=== PATIENT | male | born 1995 | race Caucasian/White ===

== ENCOUNTER 2020-09-25 02:15 | Emergency (ER) | payer BC, OTHER ==
[2020-09-25] MEDS ORDERED: Sodium Chloride 0.9% 10 ML Syringe FLUSH PRN (02:33)
[2020-09-25] MEDS ORDERED: GI Cocktail Oral Solution 30 ML PO ONE (02:33)
[2020-09-25] MEDS ORDERED: Lactated Ringers 1,000 ML IV ONE ×2 (02:36→03:49)
--- NOTE | 2020-09-25 02:43 | EDM.PDOC ---
ED HPI GENERAL MEDICAL PROBLEM - General Chief Complaint: Chest Pain Stated Complaint: Left chest pain Time Seen by Provider: 09/25/20 02:25 Source of Information: Reports: Patient History Limitations: Reports: Intoxication - History of Present Illness INITIAL COMMENTS - FREE TEXT/NARRATIVE: Patient comes emergency department today with complaints of left anterior chest pain. This patient received his Covid vaccine today. He has been drinking at the bar most of the evening and had 12+ drinks. He has been complaining of left anterior chest pain for most of the evening. He knows its been going on for multiple hours. The imaging scheduler was concerned about him at the end of the bar closing time so he gave the patient a ride to the emergency department with complaints of his left anterior chest pain. This patient over the past couple of weeks has been struggling with muscle spasms in his back and is also has some spasms in the anterior bilateral chest. His pain comes and goes on its own sharp shooting stabbing over the left anterior majority of the chest. He has had no recent falls or trauma. He has no shortness of breath difficulty breathing cough or congestion. No fever no chills. No weakness dizziness lightheadedness. No syncope. He is able to reproduce the pain with movement. He also complains of some epigastric discomfort after drinking quite heavily at the bar tonight. No nausea no vomiting. No diaphoresis. No abdominal pain. No hematuria dysuria or urinary frequency. No black or tarry stools. No Covid exposure no Covid symptoms. left chest Pain Score (Numeric/FACES): 7 - Related Data Allergies Allergy/AdvReac Type Severity Reaction Status Date / Time No Known Allergies Allergy Verified 09/25/20 02:25 Home Meds: Home Meds Cyclobenzaprine [Flexeril] 10 mg PO TID PRN #12 tab 09/25/20 [Rx] ED ROS GENERAL - Review of Systems Review Of Systems: Comprehensive ROS is negative, except as noted in HPI. ED EXAM, GENERAL - Physical Exam Exam: See Below Free Text/Narrative:: This patient is alert appropriate cooperative interactive smells highly of alcoholic beverages. Exam Limited By: Intoxication General Appearance: Alert, WD/WN, No Apparent Distress Eye Exam: Bilateral Eye: EOMI Ears: Normal External Exam, Normal TMs Nose: Normal Inspection Throat/Mouth: Normal Inspection Head: Atraumatic, Normocephalic Neck: Normal Inspection, Supple, Non-Tender, Full Range of Motion. No: Carotid Bruit Respiratory/Chest: No Respiratory Distress, Lungs Clear, Normal Breath Sounds, No Accessory Muscle Use, Other (He does have some generalized tenderness over the left anterior chest with palpation. There is no bruising swelling ecchymosis bony deformities or signs of trauma to the chest.) Cardiovascular: Normal Peripheral Pulses, Regular Rate, Rhythm, Tachycardia Peripheral Pulses: 2+: Radial (L), Radial (R), Posterior Tibial (L), Posterior Tibial (R), Dorsalis Pedis (L), Dorsalis Pedis (R) GI/Abdominal: Normal Bowel Sounds, Soft, Tender (Patient has some mild tender ness in the epigastric region. Negative Carroll sign. Rest of the abdomen is soft nontender nondistended without guarding or rebound.) (Male) Exam: Deferred Rectal (Males) Exam: Deferred Back Exam: Normal Inspection, Full Range of Motion. No: CVA Tenderness (L), CVA Tenderness (R), Muscle Spasm, Paraspinal Tenderness, Vertebral Tenderness Extremities: Normal Inspection, Normal Range of Motion, Non-Tender, No Pedal Edema, Normal Capillary Refill Neurological: Alert, Oriented, Normal Cognition, No Motor/Sensory Deficits Psychiatric: Normal Affect, Normal Mood Skin Exam: Warm, Dry, Intact, Normal Color, No Rash #1 Interpretation EKG Date: 09/25/20 Time: 02:20 Rhythm: NSR Rate (Beats/Min): 123 Shepherd: Normal P-Wave: Present QRS: Normal ST-T: Normal QT: Normal Comparison: NA - No Prior EKG Course - Vital Signs Last Recorded V/S: Last Vital Signs Temp 98 F 09/25/20 03:10 Pulse 105 H 09/25/20 04:10 Resp 20 09/25/20 04:10 BP 142/88 H 09/25/20 04:10 Pulse Ox 95 09/25/20 04:10 - Orders/Labs/Meds Orders: Active Orders 24 hr Category Date Time Status Peripheral IV Insertion Adult [OM.PC] Stat Oth 09/25/20 02:34 Ordered Labs: Laboratory Tests 09/25/20 09/25/20 Range/Units 02:50 02:50 WBC 9.7 (4.0-10.0) x10^3/uL RBC 5.32 (4.5-6.0) x10^6/uL Hgb 17.1 (14.0-18.0) g/dL Hct 45.2 (40.0-52.0) % MCV 85.0 (78.0-93.0) fL MCH 32.1 H (26.0-32.0) pg MCHC 37.8 H (32.0-36.0) g/dL RDW Coeff of Ignacia 12.9 (10.0-15.0) % Plt Count 376 (130-400) x10^3/uL Neut % (Auto) 61.8 (50.0-80.0) % Lymph % (Auto) 27.4 (25.0-50.0) % [place] % (Auto) 9.3 (2.0-11.0) % Eos % (Auto) 1.2 (0.0-4.0) % Baso % (Auto) 0.3 (0.2-1.2) % Sodium 139 (136-145) mmol/L Potassium 3.4 L (3.5-5.1) mmol/L Chloride 103 (98-107) mmol/L Carbon Dioxide 24 (21-32) mmol/L Anion Gap 15.4 H (5-15) mmol/L BUN 10 (7-18) mg/dL Creatinine 0.8 (0.70-1.30) mg/dL Est Cr Clr Drug Dosing 148.28 mL/min Estimated GFR (MDRD) > 60 Glucose 105 (74-106) mg/dL Calcium 8.7 (8.5-10.1) mg/dL Corrected Calcium 8.86 (8.5-10.1) mg/dL Total Bilirubin 0.4 (0.2-1.0) mg/dL AST 41 H (15-37) U/L ALT 105 H (16-63) U/L Alkaline Phosphatase 73 (46-116) U/L Troponin I High Sens 9 (<=76) ng/L Total Protein 7.6 (6.4-8.2) g/dL Albumin 3.8 (3.4-5.0) g/dL Globulin 3.8 Albumin/Globulin Ratio 1.00 Lipase 127 (73-393) U/L TSH, Ultra Sensitive 1.235 (0.358-3.74) uIU/mL Ethyl Alcohol 76 H (0-3) mg/dL Meds: Medications Discontinued Medications Generic Name Dose Route Start Last Admin Trade Name Kobe PRN Reason Stop Dose Admin Al Hydroxide/Mg Hydroxide 30 ml 09/25/20 02:33 09/25/20 02:41 Gi Cocktail Oral Solution 30 Ml PO 09/25/20 02:34 30 ml ONETIME ONE Administration Lactated Ringer's 1,000 mls @ 999 mls/hr 09/25/20 02:36 09/25/20 02:50 Ringers, Lactated IV 09/25/20 03:36 999 mls/hr ONETIME ONE Administration Lactated Ringer's 1,000 mls @ 999 mls/hr 09/25/20 03:49 09/25/20 03:50 Ringers, Lactated IV 09/25/20 04:49 999 mls/hr ONETIME ONE Administration Ketorolac Tromethamine 30 mg 09/25/20 03:37 09/25/20 03:40 Ketorolac 30 Mg/Ml Sdv IVPUSH 09/25/20 03:38 30 mg ONETIME ONE Administration Orphenadrine Citrate 60 mg 09/25/20 04:16 09/25/20 04:20 Orphenadrine 60 Mg/2 Ml Inj IV 09/25/20 04:17 60 mg ONETIME ONE Administration Sodium Chloride 10 ml 09/25/20 02:33 Sodium Chloride 0.9% 10 Ml Syringe FLUSH ASDIRECTED PRN Keep Vein Open - Re-Assessments/Exams Free Text/Narrative Re-Assessment/Exam: 09/25/20 EKG reviewed extemporaneously by myself shows no ST elevation or depression. No T wave inversion. Sinus tachycardia. Patient was given IV of LR 1 L wide open. Labs are drawn. GI cocktail with resolution of his epigastric pain as well as about a 50% improvement of his left anterior chest pain. His heart rate did slowly improved after the first liter of fluids but he was still somewhat tachycardic and did not have the urge to urinate so a second liter of LR was given. Laboratory evaluation is rather unremarkable other than a slightly elevated hemoglobin at 17.1. CMP shows a potassium of 3.4 and anion gap of 15.4 normal creatinine and BUN at 0.8, 10. Mild elevation of his AST at 41 ALT 105 most likely due to acute versus chronic alcohol ingestion. Normal T bili. Troponin high-sensitivity is 9. His alcohol is 76. After the second liter of fluid the patient's tachycardia has resolved and he has urinated. He was also given ketorolac 30 mg IV push and Norflex 60 mg IV push with complete resolution of his left anterior chest pain. His epigastric pain does not return. His troponin is negative as well of his EKG and I really am sure that this is not a cardiac event this is most likely alcoholic gastritis causing his epigastric pain as well as some chest pain from his gastritis versus musculoskeletal type chest pain. He does feel quite a bit better after the above therapy. We will discharge him home to rest at home tonight. 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 Anything new or worse he is to recheck. He is comfortable with this plan and his questions are answered. Departure - Departure Time of Disposition: 04:20 Disposition: Home, Self-Care 01 Clinical Impression: Non-cardiac chest pain, Musculoskeletal chest pain Acute alcohol intoxication Qualifiers: Complication of substance-induced condition: uncomplicated Qualified Code(s): F10.920 - Alcohol use, unspecified with intoxication, uncomplicated Alcoholic gastritis Qualifiers: Chronicity: acute Gastritis bleeding: presence of bleeding unspecified Qualified Code(s): K29.20 - Alcoholic gastritis without bleeding Prescriptions: Cyclobenzaprine [Flexeril] 10 mg PO TID PRN #12 tab PRN Reason: Pain Instructions: Chest Wall Pain, [id number], Nonspecific Chest Pain, Adult, [id number] Referrals: PCP,Unobtain [Primary Care Provider] - Forms: ED Department Discharge Additional Instructions: Home tonight. Lots of fluids the next few days especially electrolyte containing materials. Tylenol and or Ibuprofen as needed for pain. If pain not controlled with above. Flexeril 1 tablet three times a day as needed for muscle spasms chest wall pain. Caution sedation. Do not drink alcohol while taking this medication. RX sent to [facility]. Return to the ED if new or worsening symptoms. Follow up with PCP in the next 4-6 days if not improving sooner if worse. Sepsis Event Note (ED) - Evaluation Sepsis Screening Result: No Definite Risk - Focused Exam Vital Signs: Vital Signs Temp Pulse Resp BP Pulse Ox 09/25/20 04:10 105 H 20 142/88 H 95 09/25/20 03:10 98 F 20 149/85 H 95 09/25/20 02:15 98.6 F 125 H 16 147/90 H 97 - My Orders Last 24 Hours: My Active Orders 09/25/20 02:34 Peripheral IV Insertion Adult [OM.PC] Stat - Assessment/Plan Last 24 Hours: My Active Orders 09/25/20 02:34 Peripheral IV Insertion Adult [OM.PC] Stat
[2020-09-25 03:27] LABS: CHLORIDE,CL 103 mmol/L (98-107); SODIUM,NA 139 mmol/L (136-145)
[2020-09-25 03:28] LABS: ANION GAP 15.4 mmol/L (5-15)
[2020-09-25] MEDS ORDERED: Ketorolac 30 MG/ML SDV IVPUSH ONE (03:37)
[2020-09-25] MEDS ORDERED: Orphenadrine 60 MG/2 ML Inj IV ONE (04:16)
== END 2020-09-25 04:35 | disposition home or self-care (01) ==
LOC: VM.ED 02:15
DX: R07.89 Other chest pain (principal); K29.20 Alcoholic gastritis without bleeding; F10.129 Alcohol abuse with intoxication, unspecified; M62.830 Muscle spasm of back; Y90.3 Blood alcohol level of 60-79 mg/100 ml
CPT/HCPCS: 80053; 80307; 83690; 84443; 84484; 85025; 93005; 93010; 96374; 96375; 99284; 99285-25; A9270-GY; J1885; J2360; J7120

== ENCOUNTER 2023-11-19 14:12 | Emergency (ER) | payer OTHER | END 2023-11-19 15:00 | disposition home or self-care (01) | LOC: VM.ED 14:12 → SUPCPDRO 14:12 → VM.ED 15:00 | DX: S60.031A Contusion of right middle finger without damage to nail, initial encounter (principal); W20.8XXA Other cause of strike by thrown, projected or falling object, initial encounter | CPT/HCPCS: 73140-F7; 99283 ==